=== PATIENT | female | born 1955 | race African-American/Black ===

== ENCOUNTER → 2016-12-19 | Outpatient (CLI) | payer BC ==
[~2016-12-19] MED LIST: ATIVAN 1MG T1 MG/TAB PO; ATIVAN1 MG PO; CALCIUM 500500 M1 PO; CALCIUM600 M2 PO; CELEXA 20MG20 MG/TAB PO; CITALOPRAM20 MG PO; MULTIPLE VITAMI1 CAP PO; NAPROSYN 2250 MG/TAB PO; PERCOCET 325 MG1 TA2 PO; PHENERGAN12.5 M1 PO; PROVENTIL0.09 MG/A1 IH; RT ADVAIR 228 DISKUS IH; TRAMADOL HCL50 MG PO; TYLENOL 325MG325 MG PO; ULTRAM 50MG TAB50 MG PO; VENTOLIN0.09 MG IH; VITAMIN D 1001000 IU PO; VOLTAREN1% TP; XALATAN EYE DROPS OU; ZYRTEC 10MG10 MG PO
== END ==
LOC: MC.RAD 08:46
DX: Z12.31 Encounter for screening mammogram for malignant neoplasm of breast (principal); Z80.3 Family history of malignant neoplasm of breast

== ENCOUNTER → 2017-12-06 | Outpatient (CLI) | payer BC | LOC: COL.RAD 09:21 | DX: R10.2 Pelvic and perineal pain (principal); Q61.9 Cystic kidney disease, unspecified; R10.11 Right upper quadrant pain; D25.9 Leiomyoma of uterus, unspecified; K76.0 Fatty (change of) liver, not elsewhere classified ==

== ENCOUNTER → 2017-12-25 | Outpatient (CLI) | payer BC | LOC: MC.RAD 09:12 | DX: Z12.31 Encounter for screening mammogram for malignant neoplasm of breast (principal); N64.89 Other specified disorders of breast ==

== ENCOUNTER → 2018-01-01 | Outpatient (CLI) | payer BC | LOC: MC.RAD 10:18 | DX: R92.8 Other abnormal and inconclusive findings on diagnostic imaging of breast (principal) ==

== ENCOUNTER → 2018-02-14 | Outpatient (CLI) | payer BC | LOC: COL.RAD 05:51 | DX: R10.11 Right upper quadrant pain (principal) | CPT/HCPCS: A9537 ==

== ENCOUNTER 2019-03-18 12:54 | Inpatient (IN) | payer BC ==
[2019-03-18] VITALS (101 sets, daily range): BP systolic 135–137; BP diastolic 75–92; PULSE 100–114; TEMP 97.4–97.5; O2SAT 80–100
[~2019-03-18] VITALS: Ht 160 cm; Wt 72.4 kg
[2019-03-18] MEDS ORDERED: VITAMIN B12 781 TAB (13:10)
[2019-03-18 13:29] LABS: HEMOGLOBIN 16.8 g/dl (12.5-16.0); MEAN CELL VOLUME 89 fl (80.0-100.0); MEAN CORPUSCULAR HEMOGLOBIN 28 pg (27.0-31.0); MEAN CORPUSCULAR HGB CONC 32 g/dl (33.0-37.0); MEAN PLATELET VOLUME 11.5 fl (7.4-10.4); PLATELET COUNT 447 K/mm3 (130-400); RED BLOOD COUNT 5.97 M/mm3 (4.10-5.30); REDCELL DISTRIBUTION WIDTH-CV 13.2 % (11.5-14.5)
[2019-03-18 13:35] LABS: HEMATOCRIT 53.3 % (37.0-47.0)
[2019-03-18 13:44] LABS: ALANINE AMINOTRANSFERASE 15 U/L (9-52); ALBUMIN 5.3 gm/dL (3.5-5.0); ALKALINE PHOSPHATASE 140 U/L (50-136); ANION GAP 41 mmol/L (7-16); AST,SGOT 23 U/L (15-37); BILIRUBIN,TOTAL 0.6 mg/dL (0.0-1.0); BLOOD UREA NITROGEN 28 mg/dL (7-17); CALCIUM 10.2 mg/dL (8.4-10.2); CREATININE, serum 1.92 (0.52-1.25); LIPASE 52 U/L (23-300); POTASSIUM 4.9 mmol/L (3.4-5.0); SODIUM 135 mmol/L (137-145); TOTAL PROTEIN 9.3 gm/dL (6.4-8.2)
[2019-03-18 13:55] LABS: CARBON DIOXIDE 6 mmol/L (22-30); CHLORIDE 88 mmol/L (98-107); GLUCOSE > 625 mg/dL (74-106); TROPONIN-I < 0.012 ng/mL (0.000-0.035)
[2019-03-18 14:03] LABS: BAND 9 % (0-10); LYMPHOCYTE 5 % (20.0-51.0); METAMYELOCYTE 1 % (0-0); NEUTROPHILS 82 % (42.0-75.2); PLATELET ESTIMATE INCREASED (NORMAL)
[2019-03-18 14:10] LABS: INR 0.9 (0.8-3.0); PROTHROMBIN TIME 10.1 SECONDS (9.7-12.8)
[2019-03-18 14:40] LABS: ARTERIAL BLD GAS O2 SATURATION 96.9 % (92-100); ARTERIAL BLD GAS TCO2 CT 4.7; ARTERIAL BLOOD GAS BASE EXCESS -23.2 (-2-2); ARTERIAL BLOOD GAS HCO3 4.3 meq/L (22-26); ARTERIAL BLOOD GAS PO2 113.5 mmHg (80-100)
--- NOTE | 2019-03-18 15:15 | NUR ---
Report received from Chelo ENCARNACION in ER and pt brought to ICU room 1. Pt drowsy upon arrival but was able to roll over to ICU bed. Pt placed on monitor and physical assessment complete. Pt unable to stay awake or answer qeustions for history, meds at this time. at bedside and also unable to answer questions. States pt's daughter will be in and be able to answer questions. Will continue to follow.
--- NOTE | 2019-03-18 15:25 | NUR ---
Dr Arreguin in to see pt at this time.
--- NOTE | 2019-03-18 16:22 | NUR ---
Pt's daughter adn back at bedside. Asked daughter if she would be able to ask medication and history questions. Pt's daugher states "she is a grown woman and takes what she wants." Unable to complete med req at this time due to pt's current neuro status and family not able to answer questions. Will pass on to next shift for update.
[2019-03-18 18:19] LABS: ARTERIAL BLOOD GAS PCO2 14.3 mmHg (35-45); ARTERIAL BLOOD GAS pH 7.09 (7.35-7.45)
--- NOTE | 2019-03-18 18:41 | NUR ---
TIME OUT PERFORMED WITH DR BACA AT BEDSIDE FOR CENTRAL LINE PLACEMENT.
[2019-03-18 18:59] LABS: CALCIUM 6.8 mg/dL (8.4-10.2); CREATININE, serum 0.87 (0.52-1.25); POTASSIUM 3.9 mmol/L (3.4-5.0)
--- NOTE | 2019-03-18 19:14 | NUR ---
Report given to Gely ENCARNACION and care transfered.
--- NOTE | 2019-03-18 20:30 | NUR ---
Patient drowsy but wakes up on command. Able to answer most questions and follow all commands appropriately. Responses are somewhat slow with some hesitancy when initiating speech. Denies any pain. Requesting water. No other concerns at this time.
[2019-03-18 21:22] LABS: CALCIUM 6.6 mg/dL (8.4-10.2); CREATININE, serum 0.76 (0.52-1.25); POTASSIUM 3.9 mmol/L (3.4-5.0)
[2019-03-18 23:18] LABS: CALCIUM 6.7 mg/dL (8.4-10.2); CREATININE, serum 0.77 (0.52-1.25); POTASSIUM 3.7 mmol/L (3.4-5.0)
--- NOTE | 2019-03-18 23:49 | NUR ---
Restless in bed; entered room to assist patient. Reported wanting to "sit up" Assisted to raise be to 45 degress. Stated "that is better". Will continue to monitor.
[2019-03-19] VITALS (454 sets, daily range): BP systolic 10–142; BP diastolic 53–75; PULSE 84–99; TEMP 97.7–98.4; O2SAT 80–100
--- NOTE | 2019-03-19 00:51 | NUR ---
Patient heard moaning in her room and was observed shifting her weight around in bed. Patient denied having any pain but stated "I want to get up". Assisted patient up to side of bed to dangle. Bed alarm on to "out of bed" setting.
--- NOTE | 2019-03-19 01:50 | NUR ---
Entered patient's room and observed patient grimacing and pulling at central line dressing on neck. Observed that patient had pulled out approximately 2.5 inches of the central line. VS stable, no bleeding noted. Hospitalist notifed; requested to keep line in, but do not use. Will obtain chest xray in the morning.
--- NOTE | 2019-03-19 02:06 | NUR ---
biomedical instrument technician here to draw labs. Patient observed holding chest and stated she was having chest pains. Pain is located in center of chest and doesn't radiate. Describes it as aching and a 7/10, worsens with cough. 02 100% on RA. Hospitalist notfied; new orders received.
[2019-03-19 02:23] LABS: ANION GAP 15 mmol/L (7-16); BLOOD UREA NITROGEN 15 mg/dL (7-17); CHLORIDE 111 mmol/L (98-107); GLUCOSE 323 mg/dL (74-106); POTASSIUM 3.8 mmol/L (3.4-5.0); SODIUM 137 mmol/L (137-145)
[2019-03-19 02:25] LABS: CARBON DIOXIDE 11 mmol/L (22-30)
[2019-03-19 02:35] LABS: TROPONIN-I < 0.012 ng/mL (0.000-0.035)
--- NOTE | 2019-03-19 03:18 | NUR ---
Lorena resting quietly in recliner with eyes shut. Will continue to monitor.
[2019-03-19 04:40] LABS: BASO % 0.2 % (0.0-2.0); GRAN # 14.9 (1.4-6.5); GRAN % 80.4 % (42.2-75.2); LYMPH # 2.6 (1.2-3.4); LYMPH % 13.9 % (20.0-51.0); MEAN CELL VOLUME 87 fl (80.0-100.0); MEAN CORPUSCULAR HGB CONC 32 g/dl (33.0-37.0); MEAN PLATELET VOLUME 10.9 fl (7.4-10.4); MONO # 0.9 (0.1-0.6); MONO % 4.7 % (1.7-9.3); RED BLOOD COUNT 4.27 M/mm3 (4.10-5.30); REDCELL DISTRIBUTION WIDTH-CV 13.1 % (11.5-14.5)
[2019-03-19 04:47] LABS: CREATININE, serum 0.8 (0.52-1.25); POTASSIUM 3.3 mmol/L (3.4-5.0)
[2019-03-19 05:27] LABS: MEAN CORPUSCULAR HEMOGLOBIN 28 pg (27.0-31.0); PLATELET COUNT 277 K/mm3 (130-400)
--- NOTE | 2019-03-19 07:15 | NUR ---
Report received from Gely ENCARNACION and care resumed.
--- NOTE | 2019-03-19 08:49 | NUR ---
CAROL met with the patient and her granddaughter Andreea to discuss a discharge plan. The pt lives in [place] with her son and her , Abdi. The pt has a cane, crutches, and scooter but does not use them. The pt reports independence with ADLs. The pt's PCP is Dr. Arguelles and receives her medications from [facility] pharmacy with no difficulties. The pt does not have advanced directives in the EMR but reports she does have them completed and designate her Abdi as DPOA for HC. The pt plans to return home with Abdi and her son upon discharge. CAROL will continue to follow to assist with any discharge recommendations. Abdi Crooks p# Jermaine (daughter) p#
--- NOTE | 2019-03-19 09:06 | NUR ---
Initial visit; Patient's thanked [facility]itarian for looking in on the sleeping patient and for letting them know of the availability of spiritual care and that [facility]itarian will look in on Anita when she is awake.
--- NOTE | 2019-03-19 09:40 | NUR ---
Dr Arreguin in ot see pt at this time.
--- NOTE | 2019-03-19 11:50 | NUR ---
Picc line placed by [facility]. Lab called for BMP draw. Results pending. Will continue to follow.
[2019-03-19 12:07] LABS: CALCIUM 7.3 mg/dL (8.4-10.2); CREATININE, serum 0.6 (0.52-1.25); POTASSIUM 3.3 mmol/L (3.4-5.0)
[2019-03-19 15:16] LABS: COLLECTION METHOD IN
[2019-03-19 15:31] LABS: CALCIUM 7.6 mg/dL (8.4-10.2); CREATININE, serum 0.6 (0.52-1.25); POTASSIUM 3.8 mmol/L (3.4-5.0)
[2019-03-19 15:54] LABS: MUCOUS Present /lpf; PH 6 (5-8); SQUAMOUS EPITHELIAL 0-2 /hpf; URINE APPEARANCE Hazy; URINE BACTERIA None Seen /hpf; URINE BILIRUBIN Negative (NEGATIVE); URINE BLOOD 3+ (NEGATIVE); URINE COLOR Straw; URINE GLUCOSE 3+ (NEGATIVE); URINE KETONE Trace (NEGATIVE); URINE LEUKOCYTE ESTERASE Negative (NEGATIVE); URINE NITRATE Negative (NEGATIVE); URINE PROTEIN(semi-quant) Negative (NEGATIVE); URINE RBC 0-2 /hpf; URINE UROBILINOGEN Negative (NEGATIVE)
--- NOTE | 2019-03-19 18:53 | NUR ---
Central line removed from right neck. Tip was intact and laying on skin. Dressing applied. Pt tolerated well. Will continue to follow.
--- NOTE | 2019-03-19 19:13 | NUR ---
Report given to Gely ENCARNACION and care transfered.
[2019-03-19 19:47] LABS: CALCIUM 8.1 mg/dL (8.4-10.2); CREATININE, serum 0.61 (0.52-1.25); POTASSIUM 3.9 mmol/L (3.4-5.0)
--- NOTE | 2019-03-19 21:00 | NUR ---
Patient complaining of epigastric pain that radiates into throat. Worsens with movement from side to side. Will administer GI coctail. Pt slightly drowsy but awakens spontaneously and will follow commands and answers questions appropriately, although with slightly delayed responses.
[2019-03-19 23:14] LABS: CALCIUM 7.8 mg/dL (8.4-10.2); CREATININE, serum 0.6 (0.52-1.25); POTASSIUM 3.8 mmol/L (3.4-5.0)
[2019-03-20] VITALS (731 sets, daily range): BP systolic 113–151; BP diastolic 61–84; PULSE 86–106; TEMP 97.6–99.4; O2SAT 94–100
--- NOTE | 2019-03-20 03:15 | NUR ---
Resting quietly in bed with eyes shut. No complaints or concerns at this time.
[2019-03-20 04:48] LABS: BASO % 0.2 % (0.0-2.0); GRAN # 7.2 (1.4-6.5); GRAN % 70.8 % (42.2-75.2); HEMOGLOBIN 11.3 g/dl (12.5-16.0); LYMPH # 2.2 (1.2-3.4); LYMPH % 21.6 % (20.0-51.0); MEAN CORPUSCULAR HEMOGLOBIN 28 pg (27.0-31.0); MEAN CORPUSCULAR HGB CONC 35 g/dl (33.0-37.0); MEAN PLATELET VOLUME 10.9 fl (7.4-10.4); MONO # 0.7 (0.1-0.6); MONO % 6.9 % (1.7-9.3); PLATELET COUNT 215 K/mm3 (130-400); RED BLOOD COUNT 3.98 M/mm3 (4.10-5.30); REDCELL DISTRIBUTION WIDTH-CV 13.1 % (11.5-14.5)
[2019-03-20 04:49] LABS: HEMATOCRIT 32.7 % (37.0-47.0)
[2019-03-20 04:50] LABS: MEAN CELL VOLUME 82 fl (80.0-100.0)
[2019-03-20 05:01] LABS: CALCIUM 7.7 mg/dL (8.4-10.2); CREATININE, serum 0.57 (0.52-1.25); POTASSIUM 3.9 mmol/L (3.4-5.0)
--- NOTE | 2019-03-20 05:04 | NUR ---
Updated daughter via telephone. All questions and concerns addressed.
--- NOTE | 2019-03-20 07:06 | NUR ---
Report given to ALYSHA Cano. Patient care transfered.
--- NOTE | 2019-03-20 07:34 | NUR ---
Report received from Gely ENCARNACION and care resumed.
[2019-03-20 08:49] LABS: CALCIUM 8.2 mg/dL (8.4-10.2); CREATININE, serum 0.55 (0.52-1.25); POTASSIUM 3.7 mmol/L (3.4-5.0)
--- NOTE | 2019-03-20 10:15 | NUR ---
Dr Arreguin in to see pt.
--- NOTE | 2019-03-20 10:22 | NUR ---
Initial vislt; Patient thanked Rn Clinical Research for looking in on her and offering Spiritual Care.
--- NOTE | 2019-03-20 10:42 | NUR ---
SW rounded with the team. Speech therapy was ordered. SW will continue to follow.
--- NOTE | 2019-03-20 13:44 | NUR ---
Pt taken by wheelchair to room 352. Bedside pdate given to [place] ENCARNACION.
--- NOTE | 2019-03-20 13:54 | NUR ---
patient up to ROOM 352. Family at bedside. Pt oriented to room. Call light within reach.
--- NOTE | 2019-03-20 15:00 | NUR ---
Patient laying in bed, A&O, cooperative with cares. C/O epigastric to chest pain which she describes as "like heartburn". Unable to tolerate foods, tolerates some liquids. C/O dizziness/lightheadness when getting up. This nurse assisted patient to bathroom. patient voiding pale yellow urine. VISHNU PICC in place, 1/ NS @150ml in purple port. Red port unable to flush. This nurse called Caro to ask what she wanted to do, no answer. Will report ot assembler 1st shift nurse. Pt on room air, denies vomiting chest pain, palpitations. Site where RIJ "was" is covered with gauze and tegaderm, CDI. Pulses strong bilaterally, no edema noted. No other complaints at this time.
[2019-03-20] MEDS ORDERED: CALCIUM CARBON650 M2 (15:15)
[2019-03-20 16:06] LABS: CALCIUM 8.4 mg/dL (8.4-10.2); CREATININE, serum 0.59 (0.52-1.25); POTASSIUM 3.8 mmol/L (3.4-5.0)
--- NOTE | 2019-03-20 19:28 | NUR ---
Report given to ALYSHA Lambert. patient in bed sleeping. Patient has refused zofran. 1/2 NS still running at 150ml/hr with no complications in purple port. No other complaints at this time.
--- NOTE | 2019-03-20 21:00 | NUR ---
PT RESTING IN BED A+OX4 WITH FAMILY AT BEDSIDE. REPORTS UPPER GASTRIC PAIN- PRN MEDS GIVEN. REPORTS GI COCKTAIL DID NOT RELIEVE PAIN. PT REPORTS NO APPETITE. NPO AT MIDNIGHT. EDUCATION GIVEN ON INSULIN, REPORTS UNDERSTANDING. IJ DRESSING DCI. PICC- PURPLE PORT FLUSHES WELL, BLOOD RETURN NOTED. RED PORT UNABLE TO FLUSH- WILL PASS TO DAY SHIFT TO CONTACT ALYSHA CRUZ. TELE ON. NO NEEDS A THIS TIME. FALL PRECAUTIONS IN PLACE, BED ALARM ON
--- NOTE | 2019-03-21 02:50 | NUR ---
PT SLEEPING IN BED AT THIS TIME. CALL LIGHT IN REACH, BED ALARM ON
[2019-03-21 03:45] VITALS: BP 119/63; PULSE 105; TEMP 98.1
--- NOTE | 2019-03-21 05:06 | NUR ---
PT HAD AN UNEVENTFUL NIGHT. NPO SINCE MIDNIGHT. INSULIN GIVEN THROUGHOUT THE NIGHT PER HIGH SLIDING SCALE. LAST BG 158- 4 UNITS OF NOVOLOG GIVEN. REPORTS GASTRIC PAIN- MEDICATIONS GIVE NO RELIEF. PURPLE PICC PORT FLUSHES WELL, BLOOD RETURN NOTED. RED PORT IS UNABLE TO FLUSH. FALL PRECAUTIONS IN PLACE. BED ALARM ON. NO NEEDS AT THIS TIME. CALL LIGHT IN REACH
[2019-03-21 06:46] LABS: BASO % 0.4 % (0.0-2.0); EOS % 0.3 % (0-4.0); GRAN # 3.9 (1.4-6.5); GRAN % 52.8 % (42.2-75.2); HEMOGLOBIN 11.3 g/dl (12.5-16.0); LYMPH # 2.9 (1.2-3.4); LYMPH % 38.6 % (20.0-51.0); MEAN CELL VOLUME 81 fl (80.0-100.0); MEAN CORPUSCULAR HEMOGLOBIN 28 pg (27.0-31.0); MEAN CORPUSCULAR HGB CONC 35 g/dl (33.0-37.0); MONO # 0.6 (0.1-0.6); MONO % 7.5 % (1.7-9.3); PLATELET COUNT 210 K/mm3 (130-400); RED BLOOD COUNT 4.01 M/mm3 (4.10-5.30); REDCELL DISTRIBUTION WIDTH-CV 13.4 % (11.5-14.5)
--- NOTE | 2019-03-21 06:52 | NUR ---
REPORT GIVEN TO ALYSHA LOPEZ
[2019-03-21 06:54] LABS: HEMATOCRIT 32.3 % (37.0-47.0)
[2019-03-21 07:02] LABS: CALCIUM 7.9 mg/dL (8.4-10.2); CREATININE, serum 0.61 (0.52-1.25)
[2019-03-21 07:24] VITALS: BP 140/80; PULSE 101; TEMP 98.1
--- NOTE | 2019-03-21 07:28 | NUR ---
This patient is sleeping soundly at this time. IVF infusing. The call light is in place. Report received from ALYSHA Lambert.
--- NOTE | 2019-03-21 09:42 | NUR ---
Patient in bed at start of shift. With complaints of headache. Tylenol previously given. Started with potassium replacement per protocol. 0915 client down to EGD/Bowers.
--- NOTE | 2019-03-21 11:18 | NUR ---
Initial visit attempt; Patient indisposed, her states she is doing well and invited Hip Hop Performers to return another time.
[2019-03-21] MEDS ORDERED: LANCETS MC (11:53)
[2019-03-21] MEDS ORDERED: FREESTYLE PREC1 EAC5 MC (11:53)
[2019-03-21] MEDS ORDERED: INSULIN SYRING1 EA11 SQ (11:54)
[2019-03-21] MEDS ORDERED: GLUCOSE TEST ST1 DEV MC (11:55)
[2019-03-21 12:02] VITALS: BP 123/72; PULSE 97; TEMP 98.4
--- NOTE | 2019-03-21 13:45 | NUR ---
PICC intact right upper arm. Attempted to flush report unable to flush. Other port flushed with 10 mL normal saline with good blood return noted without resistance. Informed primary RN to obtain order for N instilling red port.
--- NOTE | 2019-03-21 14:00 | NUR ---
RECEIVED CALL FROM BRAILLE TRANSCRIBER NOTIFYING PATIENTS HR WENT FROM 127 TO 140'S. CHECKED ON PT, PT IN ROOM ON TELEPHONE. VSS. NOT IN DISTRESS. DOCTOR NOTIFIED AND EKG COMPLETED--PT HR WENT DOWN AT THIS TIME.
--- NOTE | 2019-03-21 14:41 | NUR ---
Provided patient with education regarding insulin administration. Patient able to follow and showed returned demonstration and successfully administered dose into right upper quadrant of abdomen. Advised will again show and educate for evening dose. Patient had no further questions and verbalized understanding.
--- NOTE | 2019-03-21 15:44 | NUR ---
SPOKE WITH DR. JOSÉ WHO IS AWARE OF PTS INCREASED HR. PATIENT CURRENTLY UP WITH PT/OT AMBULATING. TELEMETRY CALLED AND ADVISED OF CHANGE AND PT IS UP WALKING THIS IS DUE TO HER INCREASE HR. WILL FOLLOW ORDERS AND CONTINUE TO MONITOR PT. PATIENT ALSO AYSYMPTOMATIC.
[2019-03-21 16:12] VITALS: BP 117/71; PULSE 88; TEMP 98.6
--- NOTE | 2019-03-21 16:49 | NUR ---
Educated patient x 2 regarding insulin administration. Patient successfully administered insulin independently with minimal instruction. No further needs identified at this time. Will continue to monitor.
[2019-03-21 19:07] VITALS: BP 115/66; PULSE 115; TEMP 98.2
--- NOTE | 2019-03-21 20:00 | NUR ---
PT RESTING IN BED A+OX4. REPORTS GASTRIC PAIN BUT REPORTS NO NEED FOR INTERVENTIONS. PURPLE PICC LINE FLUSHES WELL, BLOOD RETURN NOTED. RED PICC LINE DOES NOT FLUSH- ACTIVASE UNABLE TO FLUSH IN AND CANNOT FORCE. SHIFT ASSESSMENT COMPLETE. NO CONCERNS. VSS. NO NEEEDS AT THIS TIME. CALL LIGHT IN REACH
[2019-03-21 23:38] VITALS: BP 125/66; PULSE 101; TEMP 98.7
[2019-03-22 03:29] VITALS: BP 143/73; PULSE 94; TEMP 98.2
--- NOTE | 2019-03-22 05:38 | NUR ---
PT HAD AN UNEVENTFUL NIGHT. REPORTED UPPER GASTRIC PAIN. REFUSED NEED FOR INTERVENTION. RED PICC LINE UNABLE TO FLUSH- ATIVASE UNABLE TO FLUSH IN. PT REPORT NO DIZZINESS. PURPLE PICC LINE FLUSHES WELL, BLOOD RETURN NOTED. NS RUNNING AT ORDERED RATE VIA PURPLE PICC LINE. [facility]
[2019-03-22 05:57] LABS: BASO % 0.4 % (0.0-2.0); EOS # 0.1 (0.0-0.7); EOS % 0.8 % (0-4.0); GRAN # 4.3 (1.4-6.5); GRAN % 50.8 % (42.2-75.2); HEMOGLOBIN 11.1 g/dl (12.5-16.0); LYMPH # 3.4 (1.2-3.4); LYMPH % 40.3 % (20.0-51.0); MEAN CELL VOLUME 83 fl (80.0-100.0); MEAN CORPUSCULAR HEMOGLOBIN 28 pg (27.0-31.0); MEAN CORPUSCULAR HGB CONC 34 g/dl (33.0-37.0); MEAN PLATELET VOLUME 11.6 fl (7.4-10.4); MONO # 0.6 (0.1-0.6); MONO % 7.2 % (1.7-9.3); PLATELET COUNT 209 K/mm3 (130-400); RED BLOOD COUNT 3.93 M/mm3 (4.10-5.30); REDCELL DISTRIBUTION WIDTH-CV 13.9 % (11.5-14.5)
[2019-03-22 05:58] LABS: HEMATOCRIT 32.7 % (37.0-47.0)
[2019-03-22 06:06] LABS: CALCIUM 7.9 mg/dL (8.4-10.2); CREATININE, serum 0.71 (0.52-1.25); POTASSIUM 3.7 mmol/L (3.4-5.0)
--- NOTE | 2019-03-22 06:55 | NUR ---
reprot given to anival yap. pt reports no needs at this time
--- NOTE | 2019-03-22 08:15 | NUR ---
Assessment completed, alert/oriented, vital signs stable, denies pain or discomfort, blood sugars are being controlled well, still reporting some epigastric burning/ continue GI cocktail per orders, her daughter is present and i have answered questions, she is sitting up in the chair eating breakfast at this time, she self admnistered her insulin,discharge planning and possible D/C today, deny other needs at this time
[2019-03-22 08:44] VITALS: BP 121/58; PULSE 107; TEMP 98.4
[2019-03-22] MEDS ORDERED: PROTONIX 40MG T40 MG PO (10:28)
[2019-03-22] MEDS ORDERED: GICOCKTAIL PO (10:58)
[2019-03-22] MEDS ORDERED: NOVOLOG FLEX100 U/ML SQ ×5 (10:59→14:04)
[2019-03-22] MEDS ORDERED: LEVEMIR FLEX100 U/ML SQ (10:59)
--- NOTE | 2019-03-22 15:24 | NUR ---
Discussed discharge orders with patient and family, instructed to follow up with as scheduled, instructed to get referral for Kitchen Work Supervisor, insturcted to follow up with DM educaiton as instructed, provided educaiton on fsbs monitory/ and insulin administration, patient was able to give return demonstration appropriatsuzy, scrips for Novolog/Levemir/Glucose meter/monitor strips/ lancets/ protonix/ hycosamine all sent to [facility] pharmacy for her, printed education given on ADA diet, PICC removed per orders, she is ambulatory and leaving with her family / I personally escorted them to the door
== END 2019-03-22 15:28 | disposition home or self-care (01) | DRG 638 ==
LOC: COL.ER 12:54 → ICU 14:32 → MEDICAL 14:32
PROVIDERS: Emergency Medicine; Physician Assistant; ADMIT Internal Medicine
DX: E11.10 Type 2 diabetes mellitus with ketoacidosis without coma (principal); N17.9 Acute kidney failure, unspecified; R00.0 Tachycardia, unspecified; D75.89 Other specified diseases of blood and blood-forming organs; E87.6 Hypokalemia; K21.0 Gastro-esophageal reflux disease with esophagitis; K29.70 Gastritis, unspecified, without bleeding; K44.9 Diaphragmatic hernia without obstruction or gangrene; E86.0 Dehydration; J45.909 Unspecified asthma, uncomplicated; F32.9 Major depressive disorder, single episode, unspecified; I10 Essential (primary) hypertension; H40.9 Unspecified glaucoma; J30.2 Other seasonal allergic rhinitis; Z88.1 Allergy status to other antibiotic agents; Z88.0 Allergy status to penicillin
CPT/HCPCS: 99232-AI; 99233-AI; 99239; A4216; A9284; C1751; J0696; J1644; J1815; J2060; J2270; J2405; J2704; J2997; J3480; J7030; Q9967

== ENCOUNTER → 2019-03-26 | Outpatient (CLI) | payer BC ==
[~2019-03-26] MED LIST changes: +CALCIUM CARBON650 M2; +FREESTYLE PREC1 EAC5 MC; +GICOCKTAIL PO; +GLUCOSE TEST ST1 DEV MC; +INSULIN SYRING1 EA11 SQ; +LANCETS MC; +LEVEMIR FLEX100 U/ML SQ; +NOVOLOG FLEX100 U/ML SQ; +PROTONIX 40MG T40 MG PO; +VITAMIN B12 781 TAB
== END ==
LOC: DIA.ED 14:51
DX: E11.9 Type 2 diabetes mellitus without complications (principal); Z79.4 Long term (current) use of insulin
CPT/HCPCS: G0108

== ENCOUNTER → 2019-04-03 | Outpatient (CLI) | payer BC | LOC: DIA.ED 08:27 | DX: E10.9 Type 1 diabetes mellitus without complications (principal); Z79.4 Long term (current) use of insulin; E78.5 Hyperlipidemia, unspecified; I10 Essential (primary) hypertension | CPT/HCPCS: G0108 ==

== ENCOUNTER → 2019-05-14 | Outpatient (CLI) | payer BC | LOC: DIA.ED 14:02 | DX: E10.9 Type 1 diabetes mellitus without complications (principal); E78.5 Hyperlipidemia, unspecified; I10 Essential (primary) hypertension | CPT/HCPCS: G0108 ==

== ENCOUNTER → 2019-06-10 | Outpatient (CLI) | payer BC | LOC: MC.RAD 09:48 | DX: Z12.31 Encounter for screening mammogram for malignant neoplasm of breast (principal); N64.89 Other specified disorders of breast ==

== ENCOUNTER → 2019-06-13 | Outpatient (CLI) | payer BC | LOC: MC.RAD 09:17 | DX: N64.89 Other specified disorders of breast (principal) | CPT/HCPCS: G0279 ==

== ENCOUNTER → 2020-06-11 | Outpatient (CLI) | payer BC | LOC: MC.RAD 07:36 | DX: Z12.31 Encounter for screening mammogram for malignant neoplasm of breast (principal) ==

== ENCOUNTER → 2020-09-08 | Outpatient (CLI) | payer BC | LOC: COL.RAD 10:04 | DX: N28.1 Cyst of kidney, acquired (principal) ==

== ENCOUNTER → 2021-08-03 | Outpatient (CLI) | payer BC | LOC: MC.RAD 13:42 | DX: Z12.31 Encounter for screening mammogram for malignant neoplasm of breast (principal) ==

== ENCOUNTER 2022-03-16 03:07 | Emergency (ER) | payer OTHER ==
[~2022-03-16] VITALS: Ht 157.5 cm; Wt 68.2 kg
[2022-03-16 03:15] VITALS: TEMP 98.3
[2022-03-16 03:30] LABS: BASO # 0.1 K/mm3 (0.0-0.2); BASO % 0.4 % (0.0-2.0); EOS % 0.1 % (0.0-4.0); GRAN # 10.8 K/mm3 (1.4-6.5); GRAN % 76.6 % (42.2-75.2); HEMOGLOBIN 12.8 g/dl (12.5-16.0); LYMPH # 2.5 K/mm3 (1.2-3.4); LYMPH % 17.3 % (20.0-51.0); MEAN CELL VOLUME 84 fl (80.0-100.0); MEAN CORPUSCULAR HEMOGLOBIN 28 pg (27-31); MEAN CORPUSCULAR HGB CONC 33 g/dl (33.0-37.0); MEAN PLATELET VOLUME 9.2 fl (7.4-10.4); MONO # 0.7 K/mm3 (0.1-0.6); MONO % 5.2 % (1.7-9.3); PLATELET COUNT 392 K/mm3 (130-400); RED BLOOD COUNT 4.63 M/mm3 (4.10-5.30); REDCELL DISTRIBUTION WIDTH-CV 13.2 % (11.5-14.5)
[2022-03-16 03:48] LABS: BILIRUBIN,TOTAL 0.5 mg/dL (0.2-1.2); CALCIUM 9.2 mg/dL (8.4-10.2); CREATININE, serum 1.45 mg/dL (0.57-1.11); POTASSIUM 3.6 mmol/L (3.5-4.5); TOTAL PROTEIN 7.6 gm/dL (6.2-8.1)
[2022-03-16 04:19] LABS: COLLECTION METHOD CLEAN CATCH
[2022-03-16 04:28] LABS: PH 6 (5-8); SQUAMOUS EPITHELIAL None Seen /hpf (0-10); URINE APPEARANCE Hazy (CLEAR/HAZY); URINE BACTERIA Rare /hpf (NONE SEEN); URINE BILIRUBIN Negative (NEGATIVE); URINE BLOOD 3+ (NEGATIVE); URINE COLOR Red (YELLOW); URINE GLUCOSE Negative (NEGATIVE); URINE KETONE Trace (NEGATIVE); URINE LEUKOCYTE ESTERASE Negative (NEGATIVE); URINE NITRATE Negative (NEGATIVE); URINE PROTEIN(semi-quant) 2+ (NEGATIVE); URINE RBC >50 /hpf (0-2); URINE UROBILINOGEN Negative (NEGATIVE)
[2022-03-16] MEDS ORDERED: ZOFRAN ODT4 MG PO (06:14)
[2022-03-16 06:28] VITALS: BP 132/69; PULSE 79
== END 2022-03-16 06:34 | disposition home or self-care (01) ==
LOC: COL.ER 03:07
PROVIDERS: Emergency Medicine Emergency Medical Services
DX: N21.0 Calculus in bladder (principal); N13.30 Unspecified hydronephrosis; D72.829 Elevated white blood cell count, unspecified; Z28.310 Unvaccinated for COVID-19
CPT/HCPCS: J1885; J2405; J3010; J7030; Q9967

== ENCOUNTER → 2023-09-04 | Outpatient (CLI) | payer MEDICARE, OTHER ==
[~2023-09-04] MED LIST changes: +ZOFRAN ODT4 MG PO
== END ==
LOC: MC.RAD 15:22
DX: Z12.31 Encounter for screening mammogram for malignant neoplasm of breast (principal)